=== PATIENT | female | born 1990 | race Two or more races ===

== ENCOUNTER 2023-12-08 11:59 | Emergency (ER) | payer OTHER ==
[~2023-12-08] VITALS: Ht 165.1 cm; Wt 93.0 kg
[2023-12-08] MEDS ORDERED: PRENA1 TRUE CO1 EACH PO (12:15)
== END 2023-12-08 16:27 | disposition home or self-care (01) ==
LOC: ER 12:00
DX: O26.892 Other specified pregnancy related conditions, second trimester (principal); Z3A.19 19 weeks gestation of pregnancy; R05.8 Other specified cough